=== PATIENT | female | born 1995 | race Caucasian/White ===

== ENCOUNTER 2022-10-28 05:59 | Day surgery (SDC) | payer OTHER ==
[2022-10-26 15:36] VITALS: BMI 29.8
[2022-10-28] MEDS ORDERED: Heparin 10,000 UNITS/ 10 ML VIAL ONE (06:45)
[2022-10-28] MEDS ORDERED: Lidocaine 1% (PF) 30 ML VIAL ONE (06:45)
[2022-10-28] MEDS ORDERED: Isoproterenol 0.2 MG/1 ML AMP ONE (06:52)
[2022-10-28 07:20] LABS: BHCG - Serum Negative (NEGATIVE); Pregs Control Background? CLEAR/WHITE (CLR/WHITE); Pregs Control Bar Appear? YES (CONTROL BAR)
[2022-10-28] MEDS ORDERED: FENTANYL 50 MCG/ML 1 ML VIAL ONE ×2 (07:29→07:40)
[2022-10-28] MEDS ORDERED: Midazolam HCl 2 mg/2 ml Vial ONE (07:29)
[2022-10-28] MEDS ORDERED: diphenhydrAMINE 50 MG/ML VIAL ONE ×2 (07:32→09:18)
[2022-10-28] MEDS ORDERED: Dexamethasone 20 MG/5 ML VIAL ONE (07:32)
[2022-10-28] MEDS ORDERED: PROPOFOL 200 MG/20 ML VIAL ONE (07:32)
[2022-10-28] MEDS ORDERED: PHENYLEPHRINE-NS 100 MCG/ML 10 ML SYRINGE ONE (07:32)
[2022-10-28] MEDS ORDERED: Rocuronium Bromide 10 MG/ML (10ML VIAL) ONE (07:32)
[2022-10-28] MEDS ORDERED: Ondansetron PF 4 MG/2 ML Vial ONE (07:32)
[2022-10-28] MEDS ORDERED: Promethazine HCl 25 MG/ML VIAL IM PRN (09:25)
[2022-10-28] MEDS ORDERED: Ondansetron HCl/PF 4 MG/2 ML Vial IVP PRN (09:25)
[2022-10-28] MEDS ORDERED: Meperidine HCl/PF 25 MG/ML VIAL SLOW IVP PRN (09:25)
[2022-10-28] MEDS ORDERED: Promethazine HCl 25 MG/ML VIAL IVPB PRN (09:25)
== END 2022-10-28 11:56 | disposition home or self-care (01) ==
LOC: SDC 05:59
PROVIDERS: ATTEND Internal Medicine Cardiovascular Disease
PROC: 02K83ZZ Map Conduction Mechanism, Percutaneous Approach (ICD-10-PCS; principal; 2022-10-28)
PROC: 4A023FZ Measurement of Cardiac Rhythm, Percutaneous Approach (ICD-10-PCS; principal; 2022-10-28)
PROC: 4A0234Z Measurement of Cardiac Electrical Activity, Percutaneous Approach (ICD-10-PCS; principal; 2022-10-28)
DX: I47.1 Supraventricular tachycardia (principal); Z86.16 Personal history of COVID-19; Z79.899 Other long term (current) drug therapy
CPT/HCPCS: 36415; 84703; 93005; 93613; 93620; 93621; 93623; C1730; C1769; C1894; J1100; J1200; J1644; J2001; J2250; J2405; J2704; J3010